=== PATIENT | female | born 1975 | race Caucasian/White ===

== ENCOUNTER 2016-08-22 01:10 | Emergency (ER) | payer OTHER ==
[2016-08-22] MEDS ORDERED: ONDANSETRON 4 MG/2 ML VIAL IVP ONE (01:31)
[2016-08-22] MEDS ORDERED: Sodium Chloride 0.9% 1,000 ML PRIMARY IV ONE (01:31)
[2016-08-22] MEDS ORDERED: NORMAL SALINE 10 ML SYRINGE FLUSH IVP PRN (01:31)
[2016-08-22 01:41] LABS: BASOPHILS # (AUTO) 0.01 10*3/UL; BASOPHILS % (AUTO) 0.1 % (0-1); EOSINOPHILS # (AUTO) 0.02 10*3/UL; EOSINOPHILS % (AUTO) 0.2 % (0-8); HEMATOCRIT 41.8 % (37.0-47.0); LYMPHOCYTES # (AUTO) 0.68 10*3/uL; MEAN CORPUSCULAR HEMOGLOBIN 30.2 PG (27-31); MEAN CORPUSCULAR HGB CONC 33.5 g/dL (33-37); MEAN CORPUSCULAR VOLUME 90.1 FL (81-99); MEAN PLATELET VOLUME 10.7 FL (7.4-12.2); MONOCYTES # (AUTO) 0.55 10*3/UL (0.3-0.8); MONOCYTES % (AUTO) 5.5 % (5-15); NEUTROPHILS # (AUTO) 8.78 10*3/UL; NEUTROPHILS % (AUTO) 87.3 % (50-80); RED BLOOD COUNT 4.64 10^6/uL (4.20-5.40)
[2016-08-22 01:51] LABS: BLOOD UREA NITROGEN 13 mg/dL (7-22); BUN/CREATININE RATIO 16.25 (6-20); CALCIUM 8.9 mg/dL (8.7-10.7); EST GLOMERULAR FILTRATION > 60 (>60 ml/min/1.73m(2)); LIPASE 87 IU/L (23-300); PLATELET MORPHOLOGY COMMENT NORMAL MORPHOLOGY (NORM); RBC MORPHOLOGY COMMENT NORMAL MORPHOLOGY (NORM); SERUM ALBUMIN 4.3 g/dL (3.5-4.8); WBC MORPHOLOGY COMMENT NORMAL MORPHOLOGY (NORM)
[2016-08-22 03:38] LABS: BILIRUBIN,URINE NEGATIVE (NEG); COLOR,URINE YELLOW; GLUCOSE, URINE (UA) NEGATIVE (NEG); NITRATE,URINE NEGATIVE (NEG); PROTEIN,URINE NEGATIVE (NEG); UROBILINOGEN,URINE 0.2 EU/dL (0.2)
[2016-08-22 03:43] LABS: CLARITY,URINE CLEAR (CLEAR)
[2016-08-22 03:44] LABS: SQUAMOUS EPITHELIAL CELL,UR RARE; URINE SAMPLE TYPE CLEAN CATCH URINE; WBC,URINE 0
[2016-08-22 04:24] VITALS: RESP 18; TEMP 97.9
--- NOTE | 2016-08-22 04:33 | EKG ---
[address] [address] Measurements Intervals [place] Rate: 87 P: 64 IN: 136 QRS: -50 QRSD: 93 T: 87 QT: 373 QTc: 417 Interpretive Statements SINUS RHYTHM INDETERMINATE AXIS No previous ECG available for comparison Electronically Signed On 08-22-16 08:18:17 MDT by Kendrick Gonzalez [email or web address]
--- NOTE | 2016-08-22 06:46 | PDOC ---
Abdomen/Flank HPI - General Chief Complaint: Abdomen Pain Stated Complaint: N/V, RUQ PAIN Date Seen by Provider: 08/22/16 Time Seen by Provider: 01:20 Source: POSITIVE: Patient, Spouse Exam Limitations: POSITIVE: No limitations Nurse's Notes Reviewed & Considered: Yes - History of Present Illness Initial Comments: The patient is a 41-year-old female. Around 1530 she developed some nausea with one episode of vomiting and 4 loose bowel movements. She also had some associated discomfort in the right upper quadrant. Patient has had a hysterectomy and no other abdominal surgery. She states that she has had similar episodes which is exacerbated by some types of foods. She last ate, chicken fried steak, around the time of the onset of her symptoms. She states she has a history of acid reflux. Body Location Affected: REPORTS: Abdomen Timing: REPORTS: Abrupt Duration: <24 hours (Approximately 8 hours) Severity: Moderate Quality: REPORTS: "Pain" Abdominal Pain Onset Location: REPORTS: RUQ, Epigastric Abdominal Pain Radiation: REPORTS: No radiation Context: REPORTS: None Modifying Factors: improves with: Vomiting (Times one) Associated Symptoms: REPORTS: Diarrhea (2) Similar Symptoms Previously: Yes (as above) Recent Care Received: REPORTS: Denies Any Prior Injuries Related to Current Complaint?: No - Patient Home Medications Home Medications: Home Medications NK [No Home Medications Reported] 08/22/16 - Patient Allergies Allergies/Adverse Reactions: Allergies Allergy/AdvReac Type Severity Reaction Status Date / Time No Known Allergies Allergy Unverified 03/14/16 09:55 Past Medical History - heen HEENT History: Denies History Cardiovascular History: Denies History Respiratory History: Denies History Gastrointestinal History: GERD Genitourinary History: Denies History Endocrine History: Denies History Musculoskeletal History: Denies History Neurological History: Denies History Psychiatric History: Denies History History of Sexually Transmitted Diseases: No Female Reproductive History: Denies History Obstetrical History: Denies History Cancer History: Denies History In Past Year Been Physically Harmed or Verbally Threatened: No History of MDRO: No History of Other Communicable Diseases: No Tobacco Use: Never Smoker Alcohol Use: None Substance Use Type: None Previous Surgical History: Yes Anesthesia Reactions: No Malignant Hyperthermia: No Family History of Malignant Hyperthermia: No Significant Family History: No pertinent family hx Past Medical History Reviewed: Reviewed - No Changes ROS - Limitations ROS Limitations: No Limitations Constitution: REPORTS: Denies Symptoms Cardiovascular: REPORTS: Denies Cardiac Symptoms Respiratory: REPORTS: Denies Resp Symptoms Neurological: REPORTS: Denies Neuro Symptoms Gastrointestinal: REPORTS: Abdominal Pain, Vomitting, Diarrhea Endocrine: REPORTS: Denies Symptoms Musculoskeletal: REPORTS: Denies MS Symptoms Genitourinary: REPORTS: Denies Symptoms Eyes: REPORTS: Denies Symptoms ENT: REPORTS: Denies Symptoms Skin: REPORTS: Denies Skin Symptoms Lympathic: REPORTS: Denies Lympathic Symptoms Immunologic: POSITIVE: Denies Symptoms Psychiatric: POSITIVE: Denies Psych Symptoms Abdominal/Flank Pain PE - General Appearance General Appearance: POSITIVE: Alert, Cooperative, No Acute Distress, No Evidence of Trauma - HEENT HEENT: POSITIVE: Head Inspection Nml, Eyes Inspection Nml, Ears Inspection Nml, Nose Inspection Nml, Oral/Dental Inspect. Nml, Pharynx Inspect. Nml, PERRL, EOMI - Neck Neck: POSITIVE: Normal Inspection, No Apparent Injury - Respiratory Respiratory: POSITIVE: No Respiratory Distress, Breath Sounds Normal, Chest Non- Tender - Cardiovascular Cardiovascular: POSITIVE: Regular Rate and Rhythm, Heart Sounds Normal, Equal Pulses, Strong Pulses Peripheral Pulses: Radial (R): 2+, Radial (L): 2+ - Chest Chest: POSITIVE: Non Tender - Abdomen Abdomen: Soft: (All Quadrants), Normal Bowel Sounds: (All Quadrants), Denies Tenderness: (LLQ), (RLQ), No Splenomegaly: (All Quadrants), No Hepatomegaly: ( All Quadrants), No Guarding: (All Quadrants), No Rebound: (All Quadrants), No Palpable Pulse: (All Quadrants), No Palpabale Mass: (All Quadrants), No Distention: (All Quadrants), No Rigidity: (All Quadrants), Tenderness Noted: ( RUQ) Additional Abdominal Details: Abdominal examination shows bowel sounds to be active. She does complain of some mild to moderate discomfort on direct palpation right upper quadrant. No masses, organomegaly or rebound. - Back Back: POSITIVE: Normal Inspection - Skin Skin: POSITIVE: Intact, Normal For Race, Warm, Dry, No Rash - Extremities Extremity: Non-Tender: (All Extremities), Normal ROM: (All Extremities), Normal Inspection: (All Extremities) - Neurological Neurological: POSITIVE: Oriented X3, entry level buyer Normal As Tested, Motor Normal, Sensation Normal, 5, 6 - Psychological Psychiatric: POSITIVE: Affect Appropriate, Mood Appropriate Images - Complete Complete: 1 - Area of discomfort on firm deep direct palpation Abdomen Progress - Results Reviewed by me Xrays/CTs/US Reviewed by me: Yes Discussed with Radiologist: Yes Radiology Findings: Limited abdominal ultrasound with attention to gallbladder shows at the gallbladder is contracted due to recent food ingestion. It is therefore nondiagnostic. Patient declines CT scanning. Lab Results Reviewed: Yes Lab Results:: Laboratory Results 08/22/16 08/22/16 Range/Units 01:38 03:35 WBC 10.05 (4.8-10.8) 10^3/uL RBC 4.64 (4.20-5.40) 10^6/uL Hgb 14.0 (12.0-16.0) g/dL Hct 41.8 (37.0-47.0) % MCV 90.1 (81-99) FL MCH 30.2 (27-31) PG MCHC 33.5 (33-37) g/dL RDW Std Deviation 40.3 (39-50) fL RDW Coeff of Neville 12.5 (11.5-14.5) % Plt Count 249 (140-350) 10*3/uL MPV 10.7 (7.4-12.2) FL Immature Gran % (Auto) 0.1 (0-5) % Neut % (Auto) 87.3 H (50-80) % Lymph % (Auto) 6.8 L (10-50) % [place] % (Auto) 5.5 (5-15) % Eos % (Auto) 0.2 (0-8) % Baso % (Auto) 0.1 (0-1) % Immature Gran # (Auto) 0.01 10*3/UL Neut # (Auto) 8.78 10*3/UL Lymph # (Auto) 0.68 10*3/uL [place] # (Auto) 0.55 (0.3-0.8) 10*3/UL Eos # (Auto) 0.02 10*3/UL Baso # (Auto) 0.01 10*3/UL WBC Morphology Comment Normal morphology (NORM) Plt Morphology Comment Normal morphology (NORM) RBC Morph Comment Normal morphology (NORM) Sodium 138 (135-145) meq/L Potassium 3.7 L (3.8-5.2) meq/L Chloride 104 (98-112) meq/L Carbon Dioxide 24 (23-33) meq/L Anion Gap 10 (5-20) BUN 13 (7-22) mg/dL Creatinine 0.8 (0.50-1.20) mg/dL Estimated GFR > 60 (>60 ml/min/1.73m(2)) BUN/Creatinine Ratio 16.25 (6-20) Glucose 106 (78-110) mg/dL Calculated Osmolality 285.0 (267-292) mOsm/kg Calcium 8.9 (8.7-10.7) mg/dL Total Bilirubin 1.3 H (0.3-1.2) mg/dL AST 20 (8-39) IU/L ALT 24 (9-52) IU/L Alkaline Phosphatase 68 (38-126) IU/L Total Protein 7.4 (6.1-8.0) g/dL Albumin 4.3 (3.5-4.8) g/dL Globulin 3.1 (2.50-4.10) g/dL Albumin/Globulin Ratio 1.30 (1.3-2.0) mg/g Amylase 81 (30-110) U/L Lipase 87 (23-300) IU/L Ur Collection Type Clean catch urine Urine Color Yellow Urine Clarity Clear (CLEAR) Urine pH 7.0 (5.0-8.5) Ur Specific [place] 1.015 (1.005-1.030) Urine Protein Negative (NEG) mg/dl Urine Glucose (UA) Negative (NEG) mg/dL Urine Ketones Trace (NEG) Urine Occult Blood Trace-intact H (NEG) Urine Nitrate Negative (NEG) Urine Bilirubin Negative (NEG) Urine Urobilinogen 0.2 (0.2) EU/dL Ur Leukocyte Esterase Negative (NEG) Urine RBC 2-4 (NONE) /hpf Urine WBC 0 (NONE) Ur Squamous Epith Cells Rare (NONE) Ur Renal Epithelial Cell None (NONE) Urine Crystals None Urine Bacteria None (NONE) Urine Casts None (NONE) Urine Mucus Few (NONE) Urine Trichomonas None (NONE) Urine Yeast None (NONE) Ur Culture Indicated? Culture not set - Patient's Progress Pain Medication Addressed: POSITIVE: Patient Refused School/Work Release Addressed: POSITIVE: Not Applicable Re-examine Time: 03:16 Re-Examine Comment: Abdominal pain resolved on discharge. Patient advised that symptomatically she is compatible with biliary colic and patient advised that her ultrasound was suboptimal and should be repeated by her primary care provider. Status: POSITIVE: Improved, Re-Examined - Consult Counseled: POSITIVE: Patient, Family, RE: Lab Results, RE: Radiology Results, RE : DX, RE: Need for F/U Patient Care Time - Estimated PCT Patient Care Time (In Minutes): 45 Vital Signs - Recent Vital Signs Vital Signs: Vital Signs (Last 8 hours) Temp Pulse Resp BP Pulse Ox 08/22/16 01:10 97.9 F 104 H 18 138/83 95 - VS Reviewed Vital Signs Reviewed: Yes Discharge Clinical Impression: Abdominal pain Discharge Disposition: Discharged to Home Condition: Stable Patient Instructions Given at Discharge: Acute Abdominal Pain (ED) Additional Instructions: Your gallbladder ultrasound was suboptimal because you had eaten less than 8-12 hours prior to the study. Your symptoms are suggestive of biliary colic, which normally causes pain in the area that you described. I'm glad you are feeling better. Avoid fatty foods. Please follow-up with your primary care provider and schedule an ultrasound as an outpatient. Return any time if condition worsens in any way. Follow Up With: ALL MARCANO [Primary Care Provider] - (Instructions as above. Follow-up with your primary care provider. Return as necessary if condition worsens in any way.)
[2016-08-22 09:51] LABS: OCCULT BLOOD,URINE TRACE (NEG)
== END 2016-08-22 03:27 | disposition home or self-care (01) ==
LOC: ER 01:10
DX: R10.11 Right upper quadrant pain (principal); R10.13 Epigastric pain; R19.7 Diarrhea, unspecified; R11.2 Nausea with vomiting, unspecified
CPT/HCPCS: 76705; 80053; 81001; 81003; 82150; 83690; 85025; 93005; 93010; 96361; 96374; 99284; J2405; J7030

== ENCOUNTER → 2016-08-27 | Outpatient (CLI) | payer OTHER ==
--- NOTE | 2016-08-28 08:51 | DI ---
Tc-99 HIDA BILIARY SCAN WITH FATTY MEAL CHALLENGE, 08/27/2016 11:47 AM : Clinical History: Right upper quadrant abdominal pain. Previous Related Exam: Gallbladder ultrasound, 08/22/2016. Prior to performing the study, the patient was given a preparatory meal. The patient was injected wit h 6 mCi of Tc-99 Choletec, a HIDA compound. An anterior dynamic flow study was performed followed by sequential anterior imaging at one minute intervals out to 60 minutes. The patient was then given a 3 8 gm fatty challenge and sequential anterior imaging at one minute intervals was carried out to 60 mi nutes for the gall bladder ejection phase. The patient did experience symptoms following the fatty me al challenge. The patient complained of abdominal and gas pains with the preparatory meal and the fat ty meal challenge. Gall bladder ejection fraction was calculated to be 31 %. This value is consistent with biliary dyskinesia. Readin. Normal excretory Tc-99 HIDA biliary kinetics. 2. Abnormally depressed gallbladder ejection fraction of 31% consistent with biliary dyskinesia. 3. The patient did complain of gas pain and abdominal pain both with the preparatory meal and the se tting of challenge.
== END ==
LOC: NM 11:42
PROVIDERS: ATTEND Nurse Practitioner Family
DX: R10.11 Right upper quadrant pain (principal); R11.2 Nausea with vomiting, unspecified; K82.8 Other specified diseases of gallbladder; K90.49 Malabsorption due to intolerance, not elsewhere classified
CPT/HCPCS: 78226; A9537

== ENCOUNTER 2016-09-01 06:40 | Day surgery (SDC) | payer OTHER ==
[~2016-09-01 06:40] MED LIST: LIDOCAINE W/ SODIUM BICARB 0.5 ML SYR ONE; Lactated Ringers 2,000 ML PRIMARY IV ONE
[2016-09-01] MEDS ORDERED: BUPIVACAINE 0.25% W/ EPI - 10 ML VIAL ONE (07:05)
[2016-09-01] MEDS ORDERED: Bacteriostatic NaCl Inj 30ml Vial ONE (07:05)
[2016-09-01 07:10] VITALS: RESP 18
[2016-09-01] MEDS ORDERED: LIDOCAINE MPF 2% - 5 ML (20 MG/1 ML) ONE (07:31)
[2016-09-01] MEDS ORDERED: fentaNYL Inj 250 MCG/5 ML VIAL ONE (07:31)
[2016-09-01] MEDS ORDERED: MIDAZOLAM 5 MG/1 ML ONE (07:32)
[2016-09-01] MEDS ORDERED: ROCURONIUM 10 MG/1 ML - 5 ML VIAL IVP ONE (07:32)
[2016-09-01] MEDS ORDERED: SUFENTANIL 50 MCG/1 ML ONE (07:32)
[2016-09-01] MEDS ORDERED: Sodium Chloride 0.9% vial 10 ML ONE (07:33)
[2016-09-01] MEDS ORDERED: KETAMINE 100 MG/1 ML - 5 ML ONE (08:14)
[2016-09-01] MEDS ORDERED: Lactated Ringers 2,000 ML PRIMARY IV ONE (08:15)
[2016-09-01] MEDS ORDERED: ONDANSETRON 4 MG/2 ML VIAL IVP PRN ×2 (08:36→09:22)
[2016-09-01] MEDS ORDERED: Prochlorperazine Edisylate Inj 10mg/2ml vial IVP PRN (08:36)
[2016-09-01] MEDS ORDERED: fentaNYL Inj 100 MCG/2 ML VIAL IVP PRN (08:36)
[2016-09-01] MEDS ORDERED: NORMAL SALINE 10 ML SYRINGE FLUSH IVP PRN ×2 (08:36→09:22)
[2016-09-01] MEDS ORDERED: HYDROmorphone 2 MG/1 ML IVP PRN (08:36)
[2016-09-01] MEDS ORDERED: Lactated Ringers 1,000 ML PRIMARY IV SCH ×2 (08:45→09:30)
[2016-09-01] MEDS ORDERED: Acetaminophen 1000mg Inj 100 ML IV ONE (08:45)
[2016-09-01] MEDS ORDERED: SUGAMMADEX SODIUM 200 MG/2 ML VIAL IV ONE (09:00)
[2016-09-01] MEDS ORDERED: KETOROLAC 30 MG/1 ML VIAL ONE (09:02)
[2016-09-01] MEDS ORDERED: BUPivacaine Liposome/PF (Exparel) Inj 20ml vial INFIL ONE (09:06)
[2016-09-01] MEDS ORDERED: MORPHINE SULFATE 2 MG/1 ML IVP PRN (09:22)
[2016-09-01] MEDS ORDERED: KETOROLAC 15 MG/1 ML VIAL IVP PRN (09:22)
[2016-09-01] MEDS ORDERED: oxyCODONE-ACETAMINOPHEN 5-325 TAB PO PRN (09:22)
--- NOTE | 2016-09-01 09:22 | GEN.OPNOTE ---
Operative Note Surgery Date: 09/01/16 Preoperative Diagnosis: Biliary dyskinesia. Right upper quadrant abdominal pain Postoperative Diagnosis: Same as preop Procedure: Laparoscopic cholecystectomy single site [place] Surgeon: Shay Hi MD Foundation Stage Teacher: Maldonado Elizalde MD Anesthesia Provider: Eldon Bird CRNA Anesthesia Type: General Estimated Blood Loss (mL): 5 Fluids: LR please see anesthesia notes in EMR. 15 mL of Exoprel for postoperative pain control Pathology: Gallbladder sent for pathology Indications: Patient's been having right upper quadrant abdominal pain. Gallbladder ejection only 30% Findings: Papillary dyskinesia Operative Summary: The patient is going to the operating room placed in supine position given general endotracheal anesthesia after adequate anesthesia patient is prepped draped sterile fashion. 0.025% Marcaine was infiltrated around the umbilicus a 2.5 cm incision was made through the umbilicus sharp dissection was carried to the subcutaneous tissue. Open the abdominal wall with sharp dissection once in the abdominal cavity I put the single side-port in pneumoperitoneum was obtained by insufflating CO2. After adequate pneumoperitoneum of the patient was positioned. We then put the camera port and docked in standard fashion. We then measured the gallbladder appropriate trocar size. We then docked the. robot to the camera and standard fashion. We then placed the ports and docked appropriately to the da N[place] robot. The assistant city attorney port was then placed. Gallbladder rest of the fundus retracted over liver edge. The surgeon then went to the console. I then dissected out the cystic duct. With 3 hemoclips 2 proximally one distally and then divided the cystic duct. Dissection of the cystic artery placed 2 hemoclips and then divided the cystic artery next to the gallbladder. Then dissected the gallbladder off the liver edge using the cautery we irrigated until clear. We then be docked for robot removed all trochars. We inserted the camera and inspected there is no injuries the common bile ducts no evidence of bile leak there was adequate hemostasis. Then removed the camera and port and removed the single site port along with the gallbladder. The fascia was closed with 0 Vicryl contusion or suture. Skin reapproximated using 4-0 Monocryl simple sutures. Sutures were applied sterile dressing was applied. Counts were correct. The patient was transferred to recovery room in stable condition.
[2016-09-01] MEDS ORDERED: ONDANSETRON 4 MG/2 ML VIAL ONE (10:35)
[2016-09-01] MEDS ORDERED: oxyCODONE-ACETAMINOPHEN 5-325 TAB PO ONE (11:01)
[2016-09-01 13:08] VITALS: TEMP 97.4
== END 2016-09-01 12:15 | disposition home or self-care (01) ==
LOC: SDSC 06:40
PROVIDERS: ATTEND Surgery
DX: K82.8 Other specified diseases of gallbladder (principal); R10.11 Right upper quadrant pain; K81.1 Chronic cholecystitis
CPT/HCPCS: 47562; A4216; C9290; J0131; J1885; J2704; J3010; J2001; J2250; J2405; J3490; J7120

== ENCOUNTER 2016-09-09 21:30 | Emergency (ER) | payer OTHER ==
[2016-09-09 21:46] VITALS: RESP 14; TEMP 97.2
[2016-09-09 21:54] LABS: BASOPHILS # (AUTO) 0.03 10*3/UL; BASOPHILS % (AUTO) 0.6 % (0-1); EOSINOPHILS # (AUTO) 0.44 10*3/UL; EOSINOPHILS % (AUTO) 8.4 % (0-8); HEMATOCRIT 35.6 % (37.0-47.0); HEMOGLOBIN 11.7 g/dL (12.0-16.0); LYMPHOCYTES # (AUTO) 2.23 10*3/uL; MEAN CORPUSCULAR HGB CONC 32.9 g/dL (33-37); MEAN CORPUSCULAR VOLUME 91.3 FL (81-99); MEAN PLATELET VOLUME 11.2 FL (7.4-12.2); MONOCYTES % (AUTO) 9.6 % (5-15); NEUTROPHILS # (AUTO) 2.03 10*3/UL; NEUTROPHILS % (AUTO) 38.8 % (50-80)
--- NOTE | 2016-09-09 21:54 | PDOC ---
Gen Adult / Medical Screen HPI - General Chief Complaint: General Medical Stated Complaint: KNOT TO THE RIGHT OF BELLY BUTTON Date Seen by Provider: 09/09/16 Time Seen by Provider: 21:47 Source: POSITIVE: Patient, Spouse Exam Limitations: POSITIVE: No limitations Nurse's Notes Reviewed & Considered: Yes - Indicators Temperature Between 95 and 101 Degrees: Yes Respirations Between 12 and 20: Yes Blood Pressure Between 100-165 (sys) and 60-100 (cain): Yes Pulse Range Between 60-105 (100 for age > 60 years): Yes Severe Pain (Greater than 5/10 Reported): No Chest or Abdominal Pain: No Inability to Walk: No Pt Reports Active High Risk Cond. (TB/Hepatitis/HIV/Chemo): No Abnormal Mental Status: No - History of Present Illness Body Location Affected: REPORTS: Abdomen Timing: REPORTS: Gradual Duration: <1 week Similar Symptoms Previously: No Recent Care Received: REPORTS: Recently Seen, Treated by MD, Surgery Any Prior Injuries Related to Current Complaint?: No - Patient Home Medications Home Medications: Home Medications Ranitidine HCl [Zantac 75] 2 tab PO BID tab 08/29/16 oxyCODONE/APAP 5/325 Tab [Percocet 5/325 Tab] 1 - 2 tab PO Q4H PRN #30 tab Naproxen Sodium [Aleve] 220 mg PO PRN 09/09/16 - Patient Allergies Allergies/Adverse Reactions: Allergies Allergy/AdvReac Type Severity Reaction Status Date / Time acetaminophen [From [place]] Allergy NAUSEA Verified 09/09/16 21:36 hydrocodone bitartrate Allergy NAUSEA Verified 09/09/16 21:36 [From [place]] Past Medical History - heen HEENT History: Denies History Cardiovascular History: Denies History Respiratory History: Asthma Gastrointestinal History: GERD, Gallbladder Disease Genitourinary History: Denies History Endocrine History: Denies History Musculoskeletal History: Denies History Neurological History: Denies History Blood Disorders: Denies History Psychiatric History: Denies History History of Sexually Transmitted Diseases: No Female Reproductive History: Denies History Obstetrical History: Denies History Cancer History: Denies History In Past Year Been Physically Harmed or Verbally Threatened: No History of MDRO: No History of Other Communicable Diseases: No Tobacco Use: Never Smoker Alcohol Use: None Substance Use Type: None Previous Surgical History: Yes Type / Date of Surgery: HYST/CSECTION X2. GALLBLADDER 09/01/2016 Anesthesia Reactions: No Malignant Hyperthermia: No Significant Family History: No pertinent family hx ROS - Limitations ROS Limitations: No Limitations Constitution: REPORTS: Denies Symptoms Cardiovascular: REPORTS: Denies Cardiac Symptoms Respiratory: REPORTS: Denies Resp Symptoms Neurological: REPORTS: Denies Neuro Symptoms Gastrointestinal: REPORTS: Denies GI Symptoms Endocrine: REPORTS: Denies Symptoms Musculoskeletal: REPORTS: Other (Swelling near the Umbilical incision on the right side.) Genitourinary: REPORTS: Denies Symptoms Eyes: REPORTS: Denies Symptoms ENT: REPORTS: Denies Symptoms Skin: REPORTS: Excessive Bruising (Periumbilical) Lympathic: REPORTS: Denies Lympathic Symptoms Immunologic: POSITIVE: Denies Symptoms Psychiatric: POSITIVE: Denies Psych Symptoms Gen Adult/Medical Screen Exam - General Appearance General Appearance: POSITIVE: Alert, Cooperative, No Acute Distress - HEENT HEENT: POSITIVE: Head Inspection Nml, Eyes Inspection Nml, Ears Inspection Nml, Nose Inspection Nml, PERRL, EOMI - Pupils Pupil Size: 5 mm: Bilateral - Neck Neck: POSITIVE: Normal Inspection - Respiratory Respiratory: POSITIVE: No Respiratory Distress, Breath Sounds Normal, Chest Non- Tender - Cardiovascular Cardiovascular: POSITIVE: Regular Rate & Rhythm, No Murmur, No Gallop, PMI Normal - Abdomen Abdomen: Soft: (All Quadrants), Normal Bowel Sounds: (All Quadrants), Denies Tenderness: (All Quadrants) (periumbilical region), Tenderness Noted: (All Quadrants) (periumbilical, on the right side greatest), Palpable Mass Noted: ( All Quadrants) (shila-incisional, right lateral incision) - Neurological / Psychological Mental Status: POSITIVE: Mood Normal, Affect Normal Orientation: POSITIVE: Oriented x 3 - Skin Skin: POSITIVE: Normal Color, Warm, Dry, No Rash - Extremities Extremity: Non-Tender: (All Extremities), Normal ROM: (All Extremities), Normal Inspection: (All Extremities), Pelvis Stable: (All Extremities) Gen Adlt/Medical Scrn Progress - Results Reviewed by me Lab Results Reviewed: Yes Lab Results:: Laboratory Results 09/09/16 Range/Units 21:52 WBC 5.23 (4.8-10.8) 10^3/uL RBC 3.90 L (4.20-5.40) 10^6/uL Hgb 11.7 L (12.0-16.0) g/dL Hct 35.6 L (37.0-47.0) % MCV 91.3 (81-99) FL MCH 30.0 (27-31) PG MCHC 32.9 L (33-37) g/dL RDW Std Deviation 39.9 (39-50) fL RDW Coeff of Neville 12.3 (11.5-14.5) % Plt Count 236 (140-350) 10*3/uL MPV 11.2 (7.4-12.2) FL Immature Gran % (Auto) 0 (0-5) % Neut % (Auto) 38.8 L (50-80) % Lymph % (Auto) 42.6 (10-50) % [place] % (Auto) 9.6 (5-15) % Eos % (Auto) 8.4 H (0-8) % Baso % (Auto) 0.6 (0-1) % Immature Gran # (Auto) 0 10*3/UL Neut # (Auto) 2.03 10*3/UL Lymph # (Auto) 2.23 10*3/uL [place] # (Auto) 0.50 (0.3-0.8) 10*3/UL Eos # (Auto) 0.44 10*3/UL Baso # (Auto) 0.03 10*3/UL WBC Morphology Comment Normal morphology (NORM) Plt Morphology Comment Normal morphology (NORM) RBC Morph Comment Normal morphology (NORM) PT 10.7 (9.7-11.4) secs INR 1.04 (0.00-5.90) N/A - Patient's Progress Pain Medication Addressed: POSITIVE: Yes Re-Examine Time: 22:08 Status: POSITIVE: Improved - Consult Counseled: POSITIVE: Patient, Family, RE: Lab Results, RE: DX, RE: Need for F/U Patient Care Time - Estimated PCT Patient Care Time (In Minutes): 15 Vital Signs - Recent Vital Signs Vital Signs: Vital Signs (Last 8 hours) Temp Pulse Resp BP Pulse Ox 09/09/16 21:43 97.2 F 61 14 125/83 97 - VS Reviewed Vital Signs Reviewed: Yes Discharge Clinical Impression: Postoperative hematoma Discharge Disposition: Discharged to Home Condition: Stable Patient Instructions Given at Discharge: Hematoma (ED)
[2016-09-09 21:55] LABS: PLATELET MORPHOLOGY COMMENT NORMAL MORPHOLOGY (NORM); RBC MORPHOLOGY COMMENT NORMAL MORPHOLOGY (NORM); WBC MORPHOLOGY COMMENT NORMAL MORPHOLOGY (NORM)
[2016-09-09] MEDS ORDERED: HYDROcodone-APAP 5 MG -325 MG TABLET PO ONE ×2 (21:55)
== END 2016-09-09 22:20 | disposition home or self-care (01) ==
LOC: ER 21:30
DX: L76.32 Postprocedural hematoma of skin and subcutaneous tissue following other procedure (principal); Z90.49 Acquired absence of other specified parts of digestive tract
CPT/HCPCS: 36415; 85025; 85610; 99282